=== PATIENT | male | born 2000 | race African-American/Black ===

== ENCOUNTER 2020-01-20 09:46 | Emergency (ER) | payer SELFPAY ==
[~2020-01-20] VITALS: Ht 177.8 cm; Wt 77.3 kg
[2020-01-20 10:08] VITALS: BP 116/72
[2020-01-20] MEDS ORDERED: ACETAMINOPHEN 500 MG TABLET PO ONE (10:15)
[2020-01-20 10:34] LABS: COVID AG,FIA SOURCE NASOPHARYNGEAL
== END 2020-01-20 11:30 | disposition home or self-care (01) ==
LOC: EMS 09:48
DX: R44.0 Auditory hallucinations (principal); R45.851 Suicidal ideations; F17.210 Nicotine dependence, cigarettes, uncomplicated; Z20.828 Contact with and (suspected) exposure to other viral communicable diseases
CPT/HCPCS: 87426; Z7502; Z7610

== ENCOUNTER 2021-11-08 18:50 | Emergency (ER) | payer MEDICAID, OTHER, SELFPAY ==
[~2021-11-08] VITALS: Ht 177.8 cm; Wt 77.3 kg
[2021-11-09 03:00] VITALS: BP 135/82
[2021-11-09] MEDS ORDERED: ACETAMINOPHEN 325 MG TABLET PO ONE (03:15)
== END 2021-11-09 03:33 | disposition home or self-care (01) ==
LOC: EMS 18:56
DX: R51.9 Headache, unspecified (principal); F19.10 Other psychoactive substance abuse, uncomplicated; F20.9 Schizophrenia, unspecified; F17.210 Nicotine dependence, cigarettes, uncomplicated
CPT/HCPCS: 99282; Z7502; Z7610